=== PATIENT | female | born 1980 | race Caucasian/White ===

== ENCOUNTER 2017-04-02 11:12 | Emergency (ER) | payer MEDICAID, OTHER ==
[2017-04-02 11:13] VITALS: BMI 25.7
--- NOTE | 2017-04-02 12:19 | C.PDOC ---
History Of Present Illness 36 year old female presents to ED with complaints of low back pain for 2 days. She reports pain is worse on the right lower side and radiates down the buttocks and thigh. She reports pain is worse with movement and bending over, better with rest. She took Tylenol with minimal relief. She reports long periods of standing at work and occasional lifting. Denies injury, incontinence , numbness, weakness. Time Seen by Provider: 04/02/17 11:23 Chief Complaint (Nursing): Lower Extremity Problem/Injury History Per: Patient History/Exam Limitations: no limitations Onset/Duration Of Symptoms: Days Quality Of Discomfort: "Pain" Severity: Moderate Past Medical History Reviewed: Historical Data, Nursing Documentation, Vital Signs Vital Signs: Last Vital Signs Temp 98.2 F 04/02/17 12:29 Pulse 90 04/02/17 12:29 Resp 18 04/02/17 12:29 BP 107/74 04/02/17 12:29 Pulse Ox 100 04/02/17 12:29 - Medical History PMH: No Chronic Diseases, Gall Bladder Disease (GALLSTONES) Surgical History: Cholecystectomy, Endoscopy (LONG AGO) Family History: States: Unknown Family Hx - Social History Hx Tobacco Use: No Hx Alcohol Use: No Hx Substance Use: No - Immunization History Hx Tetanus Toxoid Vaccination: Yes Hx Influenza Vaccination: No Hx Pneumococcal Vaccination: No Review Of Systems Constitutional: Negative for: Fever Cardiovascular: Negative for: Chest Pain, Palpitations Respiratory: Negative for: Cough, Shortness of Breath Gastrointestinal: Negative for: Vomiting, Abdominal Pain, Diarrhea Musculoskeletal: Positive for: Back Pain, Leg Pain Skin: Negative for: Rash Neurological: Negative for: Weakness, Numbness, Headache, Dizziness Physical Exam - Physical Exam Appears: Non-toxic, No Acute Distress Skin: Warm, Dry, No Rash Head: Atraumatic, Normacephalic Eye(s): bilateral: Normal Inspection, EOMI Nose: Normal Oral Mucosa: Moist Neck: Normal ROM Chest: Symmetrical Cardiovascular: Rhythm Regular, No Murmur Respiratory: Normal Breath Sounds, No Wheezing Gastrointestinal/Abdominal: Bowel Sounds, Soft, No Tenderness, No Distention, No Guarding Back: Normal Inspection, No CVA Tenderness, No Vertebral Tenderness, No Decreased ROM, No Muscle Spasm, Paraspinal Tenderness (lumbosacral) Extremity: Bilateral: Atraumatic, Normal Color And Temperature, Normal ROM Neurological/Psych: Oriented x3, Normal Speech Gait: Steady ED Course And Treatment O2 Sat by Pulse Oximetry: 99 Pulse Ox Interpretation: Normal Medical Decision Making Medical Decision Making: Impression: low back radiating to leg, likely sciatica no trauma Plan: * ibuprofen * flexeril * Urine analysis Progress, Reassess and Dispo: UA negative shows blood, patient on menses. 1232 Upon reevaluation patient reports pain is improving. She is ambulating with no discomfort. She feels comfortable going home and will be discharged. Patient given follow up instructions. Instructed to return to ER if symptoms worsen or new symptoms arise. Disposition Counseled Patient/Family Regarding: Diagnosis, Need For Followup, Rx Given - Disposition Referrals: [facility] [Outside] Disposition: HOME/ ROUTINE Disposition Time: 12:32 Condition: STABLE Additional Instructions: Follow up with your primary medical doctor or clinic in 2-5 days for further evaluation. Take medications as prescribed. Return to the emergency department at any time if symptoms persist or worsen. Prescriptions: Cyclobenzaprine [Cyclobenzaprine HCl] 10 mg PO TID #21 tab Ibuprofen [Motrin] 600 mg PO Q8 #30 tab Instructions: Lumbar Radiculopathy (ED) Forms: [facility] ([place]er), Work Excuse - POA Present On Arrival: None - Clinical Impression Clinical Impression: Lumbar radiculopathy
[2017-04-02 12:21] LABS: RBC URINE 31190 /hpf (0-3); URINE BACTERIA RARE (<OCC); URINE BILIRUBIN NEGATIVE (NEGATIVE); URINE BLOOD 2+ (NEGATIVE); URINE GLUCOSE (UA) NORMAL (Normal); URINE KETONE NEGATIVE (NEGATIVE); URINE LEUKOCYTE ESTERASE 2+ Leu/uL (Negative); URINE PROTEIN 2+ mg/dL (NEGATIVE); URINE UROBILINOGEN NORMAL mg/dL (0.2-1.0)
[2017-04-02 12:23] LABS: URINE COLOR Red (YELLOW)
[2017-04-02 12:24] LABS: WBC URINE 3 /hpf (0-5)
[2017-04-02 12:30] VITALS: BP 107/74; PULSE 90; RESP 18; TEMP 98.2
[2017-04-02 12:35] VITALS: O2SAT 99
== END 2017-04-02 12:41 | disposition home or self-care (01) ==
LOC: C.ER 11:12
DX: M54.16 Radiculopathy, lumbar region (principal)